=== PATIENT | male | born 1965 | race Hispanic/Latino ===

== ENCOUNTER → 2018-07-14 | Outpatient (REF) ==
[~2018-07-14] MED LIST: BACTRIM DS1 TAB PO; HIBICLENS4 % EX; HYDROCODONE/ACE1 TAB PO; NAPROSYN500 MG PO; NORCO1 TA1 PO; VITAMIN C500 M1 PO
== END | disposition home or self-care (01) | DRG 951 ==
LOC: LAB 11:56
DX: Z02.83 Encounter for blood-alcohol and blood-drug test (principal)